=== PATIENT | female | born 1960 | race Caucasian/White ===

== ENCOUNTER 2017-03-14 06:53 | Day surgery (SDC) | payer OTHER ==
[~2017-03-14] VITALS: Ht 165.1 cm; Wt 79.7 kg
--- NOTE | ~2017-03-14 | OR ---
PATIENT'S NAME: EVERETT LANCE [facility] AGE: 56 Y [address] 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 POSTOPERATIVE DIAGNOSES: Right C6-C7 disk herniation. OPERATION PROPOSED AND PERFORMED: 1. Anterior cervical microdiskectomy C6-C7. 2. Anterior cervical fusions C6-C7. 3. Allograft. 4. Plating using the Inion absorbable plate. 5. Microscope. 6. Fluoroscopy with interpretation. DESCRIPTION OF PROCEDURE: Under general anesthesia, the patient was positioned supine. The neck and upper chest were prepped and draped in the usual fashion. A curvilinear incision was carried out extending from the anterior border of the sternomastoid muscle to the midline. The platysma was incised along this line and the dissection were then continued in the space between the sternomastoid muscle and the strap muscles. The strap muscles, esophagus, and trachea were then retracted away from the midline. The dissection was carried out medial to the carotid artery and on dissecting things out in this area it got us to the prevertebral fascia, which we cauterized and incised and thus we were able to identify the vertebral bodies and disk spaces. A spinal needle was placed in one of the disk spaces initially. This turned out to be the C5- C6 disk space. We then continued the dissection distally to go to the C6-C7 disk space. Using fluoroscopy we were able to confirm that the needle we placed in the disk space was in the C6-C7 disk level. Consequently, we removed the needle and made an incision into the disk itself to reba it. Next, the longus colli muscles were then dissected away from their attachments to the C6 and C7 vertebral bodies. A black leather trimmer self-retaining retractor was then used for retraction. Next, the incision in the disk, was extended laterally in both directions and took out a little bit of disk material in order to be able to distract the disk space. We then screwed in the distractor rods into the C6 and C7 vertebral bodies and distracted the disk space. The microscope was brought in with the aid of the microscope, we PATIENT'S NAME: EVERETT LANCE [facility] AGE: 56 Y [address] ROOM: [address] [address] LOCATION: [facility] ADMIT DATE: 03/14/2017 OR/Procedure Report DISCHARGE DATE: FAMILY PHYSICIAN: Jaycob Mcclendon MD ATTENDING PHYSICIAN: Latosha Freedman completely excised the disk including the excising the posterior longitudinal ligament thus exposing the dura. After this was done, we did make sure that there was not any compression on the dura and also the findings were that there was no soft disk material that herniated, but most of this was a hard disk osteophyte on the right side at this level. There were also some osteophyte on the left side. We removed all this using the Kerrison rongeur's, decompressed the dura, but more significantly decompressed the nerve roots and then after this I did put the nerve hook, passed it into the neuroforamen and twirled it around to see there was any free fragment of disk material and there was none. The wound was then thoroughly irrigated with bacitracin irrigation. We used a Gelfoam soaked in thrombin for hemostasis. Next, using the allograft sizer I was able to get the appropriate size allograft of the vertebral. They allograft height was 7 mm, we then tapped the allograft into the now empty disk space at the C6-C7 level. After that was done, we released the distraction and removed the distraction rods, plugging of the holes was created with bone wax. Next, the soft tissue was then dissected away from the anterior-inferior and anterior-superior part of the C6 and C7 vertebral bodies respectively. After that was done, the anterior osteophytes were chipped off and the template for the inion plate was then used to get the appropriate length plate that was needed. After that was done, the plate was placed in saline and I was able to get a small amount of lordosis on the plate. The plate was then placed anterior to the vertebral bodies, straddling in the C6-C7 disk space and the plate holding pins were then used to hold the plate in position and using the double-barrel guide, we were able to then drill and tap through the plate into the vertebral body and put the screws on, prior to doing that in the portion where the plate holding pins were removed through the guide and then the vertebral body was drilled and tapped, and the screw was put in. A similar procedure was carried out at the other 2 spots and the 2 holes in the plate and after this has been done and we had placed 4 screws into the plate the wound was thoroughly irrigated with bacitracin irrigation and we went ahead and got a lateral x-ray of the cervical spine fluoroscopically and with fluoroscopy we also did both the AP and the lateral. It not only confirmed that we were at the C6-C7 disk space, but also showed that the graft as well as the plates and the screws were in good position. Next, the wound was again thoroughly irrigated with bacitracin irrigation and the wound was then closed in layers 1st the platysma and then the skin. The patient tolerated the procedure well and was taken to recovery room. LATOSHA FREEDMAN MD AEB/andiel PATIENT'S NAME: EVERETT LANCE [facility] AGE: 56 Y [address] ROOM: [place] [address] LOCATION: [facility] ADMIT DATE: 03/14/2017 OR/Procedure Report DISCHARGE DATE: FAMILY PHYSICIAN: Jaycob Mcclendon MD ATTENDING PHYSICIAN: Latosha Freedman /[id number] d: 03/14/17 2331 t: 04/09/17 1609, OPERATIVE SUMMARY
--- NOTE | ~2017-03-14 | CON ---
PATIENT'S NAME: EVERETT CASTRO [facility] AGE: 56 Y [address] ROOM: [address] [place], [place] [address] LOCATION: [facility] ADMIT DATE: 03/14/2017 Consultation DISCHARGE DATE: 03/15/2017 FAMILY PHYSICIAN: Jaycob Mcclendon MD ATTENDING PHYSICIAN: Mini Melchor REFERRING PHYSICIAN: Mini Melchor MD CHIEF COMPLAINT: Sternal/epigastric discomfort. The history of present illness is obtained from visiting with Mrs. Castro herself, her who is in the room during our interview along with reviewing the [facility] chart along with her preoperative H and P and home medicine list along with notes from Dr. Melchor's office. HISTORY OF PRESENT ILLNESS: Mrs. Castro is a 56-year-old female who is on postop day 1 of an anterior cervical disk fusion of level 6-[address] Melchor. The procedure was done secondary to right C6-7 disk herniation, and the patient complaining of neck pain and muscle weakness. The patient first noticed her low sternal/epigastric discomfort postoperatively in the recovery room. She describes the discomfort as being a pressure-like sensation. There seems to be no precipitating factors. If she belches, it seems to improve the discomfort. She rates her pain 7/10 at its worst and 0/10 at its best. It may last 1-2 minutes and hence multiple times throughout the hour. It is nonpositional. It does not radiate to chest or shoulder. It does, however, radiate underneath her bilateral breasts. She is experiencing no dysphagia. She describes this sensation as a pressure-like discomfort. The patient is not someone who suffers from frequent heartburn, dyspepsia, or dysphagia. The patient denies any cardiac history outside of hypertension which is well controlled on her verapamil. She does take non-steroidal anti-inflammatory drugs on a regular basis, but has cut back over the last few weeks. She denies any family history of cardiac issues. REVIEW OF SYSTEMS: The 13-point review of systems is negative outside of what is reviewed in the description of her chief complaint. PAST MEDICAL HISTORY: 1. Hypertension, essential, well controlled. 2. Cervical disk disease, status post ACDF. 3. Chronic issues of headaches. 4. Hyperlipidemia. PATIENT'S NAME: EVERETT CASTRO [facility] AGE: 56 Y [address] ROOM: [id number] [place], [place] [address] LOCATION: [facility] ADMIT DATE: 03/14/2017 Consultation DISCHARGE DATE: 03/15/2017 FAMILY PHYSICIAN: Jaycob Mcclendon MD ATTENDING PHYSICIAN: Mini Melchor 5. History of bipolar disorder. 6. History of adenoma, adrenocortical. 7. Psoriasis. PAST SURGICAL HISTORY: 1. The patient has a history of KELLY/BSO at age 36. 2. Breast biopsy in 2013, benign. FAMILY HISTORY: The patient does have 2 sisters who are alive and well along with 2 brothers alive and well, 1 brother secondary to accident. Her mother is secondary to breast cancer, I believe in her 50s. No family history of cardiac issues. SOCIAL HISTORY: The patient lives in [place] with her . She is a tobacco user. She smokes approximately 1 pack a day and has for many years. Denies any use of street or illicit drugs. CURRENT MEDICATIONS: 1. Zolpidem tartrate 10 mg p.o. q.h.s. 2. Verapamil 180 mg p.o. q.h.s. 3. Melatonin 9 mg p.o. q.h.s. 4. Hydrochlorothiazide 12.5 mg p.o. q.a.m. 5. Depakote 250 mg p.o. b.i.d. 6. Oxycodone-APAP 5/325 1-2 tabs q.4 hours p.r.n. pain. ALLERGIES: IT IS NOTED THAT SHE HAS NO TRUE MEDICATION ALLERGIES. SHE DOES NOTE THAT CODEINE INHIBITS SLEEP. PHYSICAL EXAMINATION: VITAL SIGNS: Temperature 98.3, pulse 71, respirations 16, blood pressure 110/67, and O2 saturation 91% on room air. The patient's vital signs have been stable throughout this hospitalization. GENERAL: The patient is a well-groomed 56-year-old female who appears to be in no distress during our exam. She does have a dressing in place over her anterior neck which is dry, clean, and intact. HEENT: Unremarkable. Atraumatic, normocephalic. Symmetry of the facial organs. NECK: I cannot detect any masses. Again, dressing is in place. CHEST: Clear to auscultation. I cannot appreciate any wheezes, crackles, or rales. CARDIOVASCULAR: Regular rhythm and rate. I cannot appreciate any gallops, clicks, or murmurs. PATIENT'S NAME: EVERETT CASTRO [facility] AGE: 56 Y [address] ROOM: [place] [address] LOCATION: [facility] ADMIT DATE: 03/14/2017 Consultation DISCHARGE DATE: 03/15/2017 FAMILY PHYSICIAN: Jaycob Mcclendon MD ATTENDING PHYSICIAN: Mini Melchor ABDOMEN: Soft, nontender. Positive bowel sounds. GENITOURINARY: Deferred. MUSCULOSKELETAL: The patient is able to move all extremities. I cannot appreciate any muscle atrophy. I did not appreciate any swelling or redness. NEUROLOGIC: The patient is alert and oriented x3. Follows commands and answers questions appropriately. Cranial nerves 2-12 are grossly intact. LABORATORY DATA: None were drawn here. I did review her preoperative laboratory data which was unremarkable and also reviewed her preoperative EKG which was appended to the chart. Heart rate was 72 beats per minute, within normal limits, normal sinus rhythm. I did not appreciate any ST changes. We will repeat an EKG now for comparison. Cardiac enzymes ordered and currently pending. ASSESSMENT/PLAN: 1. Atypical chest pain. We will check ECG now for comparison to her preoperative EKG. We will draw cardiac enzymes now and then q.6 hours and if troponins remain negative, the patient may plan to discharge home as was initially planned. We will also administer a dose of a GI cocktail now to see if this helps with her symptoms. I have low suspicion if this is true cardiac etiology. 2. Tobaccoism. Encourage the patient to abstain. 3. Hypertension, essential, well controlled. 4. Status post anterior cervical discectomy and fusion of C6-7, postoperative day 1. Thank you for allowing us to help care for this patient. MADISON MIGUEL PA-C FOR MD DANIELA CONTRERAS/tamara /[id number] CC: MD Jaycob Perkins MD d: 03/15/172024 t: 04/10/17 1521, CONSULTATION REPORT
[~2017-03-14 06:53] MED LIST: ALEVE220 MG PO; AMBIEN10 MG PO; DEPAKOTE DELAY250 MG PO; HYDRODIURIL12.5 MG PO; MELATONIN10 M2 PO; MOTRIN800 MG PO; NORCO 5-325 TA1 EACH PO; VERAPAMIL ER180 MG PO
--- NOTE | 2017-03-14 17:05 | NUR ---
Significant Event: PT ALERT AND ORIENTED WHEN AWAKE BUT HAS BEEM SLEEPY THIS SHIFT. ARRIVED ON FLOOR AT 1215. POST OP VITALS CONT LAST HOURLY AT 1900. IN THE ROOM WITH PT. PT TOOK PERCOCET 2 TABS AT [address] FREEDMAN. TAKES FLUIDS WELL. UP TO THE BATHROOM TO VOID X 1. UP IN THE RECLINER AT THIS TIME. Follow up:
--- NOTE | 2017-03-15 04:16 | NUR ---
Patient alert and oriented x3, very pleasant and cooperative, up ad fish in room, has some c/o of slight numbness and tingling to right hand, pain has been well under control has rested well tonight, dressing to anterior neck clean dry and intact, in room assists with care.
[2017-03-15 14:48] LABS: CPK 241 IU/L (21-215)
--- NOTE | 2017-03-15 16:04 | NUR ---
Significant Event: pt alert and oriented. up in the halls and in the room. will discharge this evening after 800pm cardiac enzymes if they are negative. voids well. percocet for pain. will update you with last time. in the room dressing change at 1200. Follow up:
[2017-03-15] MEDS ORDERED: PERCOCET 5-3251 EACH PO (16:22)
[2017-03-15 18:34] LABS: CPK 251 IU/L (21-215)
== END 2017-03-15 19:05 | disposition disaster alternative care site (69) ==
LOC: G3N 06:53 → GSDC 06:53 → G3N 12:15 → GSDC 03-15 19:05
PROVIDERS: Internal Medicine
PROC: 0RB30ZZ Excision of Cervical Vertebral Disc, Open Approach (ICD-10-PCS; principal; 2017-03-14)
PROC: 0RG10J0 Fusion of Cervical Vertebral Joint with Synthetic Substitute, Anterior Approach, Anterior Column, Open Approach (ICD-10-PCS; 2017-03-14)
PROC: 0RG10K0 Fusion of Cervical Vertebral Joint with Nonautologous Tissue Substitute, Anterior Approach, Anterior Column, Open Approach (ICD-10-PCS; 2017-03-14)
DX: M50.223 Other cervical disc displacement at C6-C7 level (principal); I10 Essential (primary) hypertension; Z88.6 Allergy status to analgesic agent; Z98.890 Other specified postprocedural states; Z79.899 Other long term (current) drug therapy
CPT/HCPCS: C1713; J0690; J1100; J2270; J2405; J2550; J7120